=== PATIENT | female | born 1940 | race Caucasian/White ===

== ENCOUNTER 2016-09-24 13:02 | Observation (INO) | payer MEDICARE, BC ==
--- NOTE | ~2016-09-24 | CR72 ---
[facility] A Service of [facility] RADIOLOGY TEXT RESULTS PATIENT: BLANCA BROWN LOCATION: [facility] 565-01 : 41 UNIT #: [id number] AGE: [address]: Rudi Granados MD SEX: F ORDER DR: [id number] [facility] [address] [place], [place] [address] [id number] MR#: [id number] Acc #: [id number] NAME: BLANCA BROWN : 1940 SEX: F STUDY DATE/TIME: 09/24/2016 15:00 UNIT: [facility] ROOM: [id number] STUDY DESCRIPTION: CR Chest Single View Portable Attending Physician: Rudi Granados M.D. Ordering Physician: Pari Miramontes M.D. Primary Care Physician: Jc Kohli M.D. MEDICAL IMAGING REPORT This report is preliminary unless electronic signature is present EXAM Portable chest x-ray 09/24/2016 HISTORY Shortness of air. 2 days duration. Short of air. Bilateral foot swelling. Prior history of CHF. Prior history of smoking. TECHNIQUE AP right anterior oblique view of the chest compared to a study dated 01/09/2014. FINDINGS No acute-appearing bony abnormality. Given obliquity, stable mild cardiac enlargement. Lungs hyperinflated suggesting underlying COPD in this patient with history of prior tobacco usage. No pleural effusion or pneumothorax and no suspicious nodule. There are some very subtle linear interstitial markings in the periphery of the mid- to lower lung zones which could represent chronic change or very minimal interstitial edema. There is no dense airspace disease. Remainder of the lungs clear. Dictated by... Eliel Hollis M.D. THIS IS AN ELECTRONICALLY VERIFIED REPORT Eliel Hollis M.D. at 09/25/2016 12:11 PM Rita TD: 09/24/2016 22:53 JOB #: [id number] MEDICAL IMAGING REPORT [facility] A Service [facility] RADIOLOGY TEXT RESULTS PATIENT: BLANCA BROWN LOCATION: [facility] 565-01 : 41 UNIT #: [id number] AGE: [address]: Rudi Granados MD SEX: F ORDER DR: Page 1 of 1 COPY
--- NOTE | ~2016-09-24 | DS ---
Unit #: [id number] #: [id number] Patient: BLANCA BROWN [id number] [facility]. [place], [place] [address] [id number] I MR#: [id number] NAME: BLANCA BROWN ROOM: 565 Age: 76 Sex: F Admission Date: 09/24/2016 : 1940 Discharge Date: 09/26/2016 Attending Physician: Rudi Granados M.D. Primary Care Physician: Jc Kohli M.D. DISCHARGE SUMMARY HOSPITAL COURSE Patient presented to the [facility] ED on September 24, 2016 at 1 p.m. with complaints of her feet being swollen and shortness of breath x4 days. She also has complained of awakening at night with diaphoresis and severe dyspnea when she would walk to her bathroom. She also complained of orthopnea on admission. Initial troponin was elevated at 0.44 and BNP was elevated at 587. Chest x-ray was obtained which showed no evidence of acute heart failure at that time. EKG was negative for any ischemic changes. The patient was admitted and started on IV diuretics as well as therapeutic Lovenox dose and there was an order to obtain a 2D echo to evaluate LV function. Enzymes were trended out and they were troponin 0.43, then 0.49, then 0.33, then 0.24, then 0.32, then 0.34. Echo showed mild basal septal hypertrophy, global ejection fraction 25% to 30%, basal inferior, basal and mid inferolateral akinesis, and hypokinesis of the remaining segments, mild MR, RVSP less than 35 mmHg. With the enzymes trending down and remaining relatively the same, it was determined the patient was likely not having an acute TX. Patient was poor at taking her medications prior to admission as she complained that lots of her medications made her have side effects that she did not like. Therefore, she would just quit taking her medications. The patient has been started on lisinopril at night, Lasix in the morning, and Coreg twice a day in an effort to minimize her medication regimen and encourage compliance. Discussed with the patient that she needs to take her medications daily as prescribed and to call the office if she has any problems prior to stopping them. The patient verbalized understanding of this. Also, discussed with the patient the fluid restriction and salt restriction as well as daily weights and when to call for weight gain. The patient verbalized understanding of this education. Will have the nursing to provide CHF education on discharge. DISCHARGE DIAGNOSES 1. Mild acute on chronic systolic heart failure exacerbation. 2. Hypertension. 3. Right coronary artery is 100% stenosis. 4. Ejection fraction 25% to 30%. DISCHARGE MEDICATIONS 1. Lisinopril 10 mg p.o. nightly. 2. Furosemide 40 mg p.o. daily. 3. Coreg 3.125 mg p.o. twice a day. ALLERGIES Aspirin, acetaminophen. Unit #: [id number] #: [id number] Patient: BLANCA BROWN DIAGNOSTIC STUDIES LABORATORY: Most recent diagnostic studies include: Sodium 136, potassium 3.6, chloride 102, CO2 of 32, glucose 83, BUN 20, creatinine 0.9, magnesium 1.7. PHYSICAL EXAMINATION GENERAL: This is a 76-year-old white female who is alert and oriented x3, no apparent distress. VITAL SIGNS: Blood pressure 132/65, temperature 97.9, pulse 70, respirations 18. HEENT: Pupils equal, round, and reactive. Oral mucosa is moist. NECK: No JVD. No thyromegaly. No lymphadenopathy. No carotid bruits. HEART: S1, S2. No S3, S4. No clicks. No rubs. No murmurs. ABDOMEN: Soft. Bowel sounds nontender, nondistended. EXTREMITIES: Positive trace edema bilateral lower extremities. NEUROLOGIC: No neuro deficits noted. PLAN Patient will be discharged home with followup in the office with Dr. Granados on October 28 at 3:30 p.m. Patient verbalized understanding of all home care and plan for followup and verbalized that she will be compliant with this. Dictated by... China Hickey APRN for Josee Cruz TD: 09/27/2016 10:22 JOB #: [id number] DISCHARGE SUMMARY Page 1 of 1 X X DISCHARGE SUMMARY
--- NOTE | ~2016-09-24 | HP ---
Unit #: [id number] #: [id number] Patient: BLANCA BROWN [id number] [place], [place] [address] [id number] I MR#: [id number] NAME: BLANCA BROWN ROOM: 565 Age: 76 Sex: F Admission Date: 09/24/2016 : 1940 Attending Physician: Rudi Granados M.D. Primary Care Physician: Jc Kohli M.D. HISTORY AND PHYSICAL HISTORY OF PRESENT ILLNESS This is a 76-year-old white female, who is known to Dr. Granados, who has a history of coronary artery disease. In 2013, she had a cardiac catheterization which revealed 100% occlusion to the right coronary artery. At that time, she had a 30% stenosis to the diagonal branch, but no other coronary artery disease. She was treated medically. She is known to have chronic systolic heart failure with ejection fraction was 20% in 2013 per cardiac catheterization. In 2014, her echocardiogram showed improved ejection fraction of 45% to 50%. The patient presents to the emergency room with a complaint of shortness of breath and leg edema for the past 4 days. She has been awakened at night with diaphoresis. On the way to the bathroom, she has dyspnea on exertion. Her dyspnea also requires her to sleep upright in a recliner. She denies cough, fever, or chills. No paroxysmal nocturnal dyspnea or orthopnea. She has no chest pain, palpitations, or dizziness. Upon further questioning, the patient states that she quit taking all of her medications, furosemide because of urinating frequently. She states losartan and carvedilol both caused bad diarrhea and joint pain. She had vaginal bleeding with aspirin and another medication. She also reports muscle pain with statin. She does continue to smoke. In the emergency room, troponin elevated at 0.44. Her chest x-ray shows no evidence of heart failure. BNP elevated at 587. Her EKG shows no acute ischemic changes. PAST MEDICAL HISTORY 1. 2D echocardiogram on 12/06/2014 shows an ejection fraction of 45% to 50% with [id number] mitral regurgitation, mild tricuspid regurgitation, and mild aortic regurgitation. 2. Cardiac catheterization on 01/04/2014 showed left main and circumflex artery normal. LAD first diagonal branch with 30% near its origin. Right coronary artery 100% at the proximal two-thirds and distal one-third. Ejection fraction of 20%. Pulmonary artery pressure is 51/27 with mean of 36 mmHg. Pulmonary capillary wedge pressure A-wave 25, V-wave 29 with mean of 27 mmHg. 3. Chronic systolic heart failure. 4. Hypertension. 5. Hyperlipidemia. 6. Left bundle-branch block. 7. COPD. 8. History of nonsustained ventricular tachycardia. 9. Anxiety. 10. Noncompliance. Unit #: [id number] #: [id number] Patient: BLANCA BROWN 11. Statin myopathy. 12. Active smoker. PAST SURGICAL HISTORY No previous surgeries. SOCIAL HISTORY The patient lives at home alone. She continues to smoke, but will not commit to how much. She smokes on a daily basis. She denies illicit drug or alcohol use. FAMILY HISTORY Negative for coronary artery disease. ALLERGIES Acetaminophen and aspirin. Also should record statin allergy for myopathy. REVIEW OF SYSTEMS CONSTITUTIONAL: Negative for fever or chills. No weight gain or weight loss. HEENT: No headache, hearing or vision changes, difficulty with swallowing. Negative for dizziness. CARDIOVASCULAR: Has chest pain as described in the HPI. Denies palpitations. No paroxysmal nocturnal dyspnea or orthopnea. Denies syncope or near syncope. RESPIRATORY: Positive for dyspnea on exertion. No cough or hemoptysis. GASTROINTESTINAL: Negative for abdominal pain, questionable increase in abdominal girth. No constipation, melena, or hematemesis. EXTREMITIES: Positive for lower extremity edema. PHYSICAL EXAMINATION VITAL SIGNS: Blood pressure 139/96, heart rate 81, temperature 97.7. GENERAL: This is a 76-year-old white female, who is in no acute respiratory distress. NEUROLOGIC: She is awake, alert, oriented without focal weaknesses. NECK: Trachea is midline. No thyromegaly or lymphadenopathy. No jugular venous distention. HEART: S1 and S2. Heart sounds are normal. No murmurs. No rubs or clicks. Regular rate and rhythm. LUNGS: Clear without rales, rhonchi, or wheezes. ABDOMEN: Soft and nontender with bowel sounds present. EXTREMITIES: With 2+ leg edema. SKIN: Warm and dry. DIAGNOSTIC STUDIES LABORATORY RESULTS: Glucose 98, BUN 17, creatinine 1.0, sodium 137, potassium 3.1. BNP 587. Troponin 0.29 to 0.44. CK-MB 2.2. White count 6.8, hemoglobin 13.9, hematocrit 42.1, platelet count 168. IMAGING STUDIES: Chest x-ray shows mild cardiac enlargement with COPD. CARDIOVASCULAR STUDIES: EKG; normal sinus rhythm with a rate of 82 beats per minute with frequent premature atrial complexes and premature ventricular complexes. Noted for left bundle-branch block, left anterior fascicular block, and poor R-wave progression with loss of R-wave in the anterior leads. IMPRESSION Unit #: [id number] #: [id number] Patient: BLANCA BROWN 1. Questionable non-ST elevation myocardial infarction with peak troponin of 0.44. 2. Acute on chronic systolic heart failure secondary to hypertensive heart disease. 3. Coronary artery disease with 100% stenosis of the right coronary artery per cardiac catheterization in 2013. 4. Hypertension. 5. Hyperlipidemia. 6. Chronic obstructive pulmonary disease. 7. Chronic left bundle-branch block. 8. Nicotine abuse. 9. Statin myopathy. 10. Noncompliance. PLAN 1. We will diurese the patient with IV diuretics. 2. Place on fluid restriction. 3. Follow the troponin to rule out myocardial infarction. 4. Conservative medical management for the patient has no chest pain. 5. Supplement potassium. 6. TSH and lipid profile will be done in a.m. 7. Start the patient on SANIA inhibitor for cardiomyopathy if she agrees. 8. Repeat echocardiogram to re-evaluate left ventricular systolic function. 9. Anticoagulate with aspirin and Lovenox. Dictated by Tristan Montaño A.P.R.N. for Josee Cruz/bhavani TD: 09/25/2016 14:09 JOB #: [id number] CC: . HISTORY AND PHYSICAL Page 1 of 1 X Tristan Montaño APRN HISTORY AND PHYSICAL
--- NOTE | ~2016-09-24 | EKG ---
PATIENT: BLANCA BROWN UNIT #: [id number] Ventricular Rate: 82 BPM Atrial Rate: 82 BPM P-R Interval: 208 ms QRS Duration: 138 ms Q-T Interval: 422 ms QTC Calculation(Bezet): 493 ms P [place]: 46 degrees Calculated R [place]: -47 degrees Calculated T [place]: 120 degrees Diagnosis Line: Sinus rhythm with frequent and consecutive Diagnosis Line: Premature ventricular complexes Diagnosis Line: Possible Left atrial enlargement Diagnosis Line: Left axis deviation Diagnosis Line: Left bundle branch block Diagnosis Line: Abnormal ECG Diagnosis Line: When compared with ECG of 02-JAN-2014 06:50, Diagnosis Line: Premature ventricular complexes are now Present Diagnosis Line: QT has lengthened Diagnosis Line: Confirmed by NURYS WILLARD MD ([id number]) on Diagnosis Line: 09/25/2016 10:59:13 AM INTERPRETING MD: LILA
[~2016-09-24 13:02] MED LIST: ASPIRIN81 MG PO; COREG6.25 MG PO; FUROSEMIDE40 MG PO; NO MEDICATIONS; SIMVASTATIN40 MG PO
[2016-09-24 14:57] LABS: BASOPHIL# 0.1 X10e3 (0-0.3); BASOPHIL% 0.8 % (0-2.5); EOSINOPHIL% 0.6 % (0.0-7.0); HEMATOCRIT 42.1 % (35.0-45.0); HEMOGLOBIN 13.9 gm/dL (12.0-16.0); LYMPHOCYTE% 14.7 % (17.0-45.0); MEAN CELL VOLUME 88.9 FL (83-96); MEAN CORPUSCULAR HEMOGLOBIN 29.3 PG (28-34); MEAN CORPUSCULAR HGB CONC 32.9 g/dL (30-36); MONOCYTE# 0.6 X10e3 (0-1.0); MONOCYTE% 9.3 % (3.0-12.0); NEUTROPHIL# 5.1 X10e3 (1.5-7.1); NEUTROPHIL% 74.6 % (40-75); PLATELET COUNT 168 X10e3 (140-420); RED BLOOD COUNT 4.73 X10e (3.90-5.30); RED CELL DISTRIBUTION WIDTH 15.1 % (11.0-15.5); WHITE BLOOD COUNT 6.8 X10e3 (4.0-10.5)
[2016-09-24 14:59] LABS: DIFF IND NO
[2016-09-24 15:27] LABS: ALBUMIN SERUM 3.8 g/dL (3.5-5.0); BILIRUBIN, DIRECT 0.2 mg/dL (0.0-0.2); BILIRUBIN,INDIRECT 0.7 mg/dL (0.0-0.9); BILIRUBIN,TOTAL 0.9 mg/dL (0.2-2.0); CALCIUM SERUM 8.7 mg/dL (8.4-10.2); GLOM FILT RATE Estimated 55.1 mL/min (>60); POTASSIUM 3.1 mmol/L (3.5-5.1); PROTEIN TOTAL SERUM 6.5 g/dL (6.0-8.3)
[2016-09-24 16:06] LABS: POC - CKMB 1.5 ng/mL (0.0-7.9); POC - TROPONIN 0.29 ng/mL (<=0.05)
[2016-09-24 16:43] LABS: POC - CKMB 2.2 ng/mL (0.0-7.9); POC - TROPONIN 0.44 ng/mL (<=0.05)
[2016-09-24] MEDS ORDERED: NO MEDICATIONS (18:04)
[2016-09-25 00:57] LABS: %MB 6.2 % (0.0-4.0); MB 4.6 ng/ml
[2016-09-25 06:24] LABS: THYROID STIMULATING HORMONE 1.61 uIU/ml (0.34-5.60)
[2016-09-25 06:34] LABS: FREE THYROXIN (T4) 0.92 ng/dL (0.58-1.64)
[2016-09-25 07:45] LABS: BUN/CREATININE RATIO 21.25; CALCIUM SERUM 8.8 mg/dL (8.4-10.2); CREATININE SERUM 0.8 mg/dL (0.6-1.4); GLOM FILT RATE Estimated 72.2 mL/min (>60); POTASSIUM 4.3 mmol/L (3.5-5.1)
[2016-09-25 07:56] LABS: %MB 6.4 % (0.0-4.0); MB 4.1 ng/ml
[2016-09-26 06:49] LABS: BUN/CREATININE RATIO 22.22; CALCIUM SERUM 8.4 mg/dL (8.4-10.2); CREATININE SERUM 0.9 mg/dL (0.6-1.4); GLOM FILT RATE Estimated 62.6 mL/min (>60); MAGNESIUM 1.7 mg/dL (1.6-3.0); POTASSIUM 3.7 mmol/L (3.5-5.1)
[2016-09-26] MEDS ORDERED: COREG3.125 MG PO (12:58)
[2016-09-26] MEDS ORDERED: FUROSEMIDE40 MG PO (12:59)
[2016-09-26] MEDS ORDERED: LISINOPRIL10 MG PO (13:00)
== END 2016-09-26 16:39 | disposition home or self-care (01) ==
LOC: CED 13:02 → CEDOF 16:50 → C5C 16:50 → CED 19:14 → CEDOF 19:14 → C5C 23:39
PROVIDERS: Emergency Medicine; Internal Medicine Cardiovascular Disease
DX: I11.0 Hypertensive heart disease with heart failure (principal); I50.23 Acute on chronic systolic (congestive) heart failure; I25.10 Atherosclerotic heart disease of native coronary artery without angina pectoris; I08.1 Rheumatic disorders of both mitral and tricuspid valves; I51.7 Cardiomegaly; I44.7 Left bundle-branch block, unspecified; J44.9 Chronic obstructive pulmonary disease, unspecified; F41.9 Anxiety disorder, unspecified; G72.89 Other specified myopathies; E78.5 Hyperlipidemia, unspecified; Z79.899 Other long term (current) drug therapy; F17.200 Nicotine dependence, unspecified, uncomplicated; Z91.14 Patient's other noncompliance with medication regimen; Z88.8 Allergy status to other drugs, medicaments and biological substances; Z88.4 Allergy status to anesthetic agent
CPT/HCPCS: 36415; 71010; 80048; 80061; 80076; 82550; 82553; 83735; 83880; 84439; 84443; 84484; 85025; 93005; 93306; 96372; 96374; 96376; 99285; G0378; J1650; J1940